=== PATIENT | female | born 1965 | race Caucasian/White ===

== ENCOUNTER 2016-12-08 18:17 | Emergency (ER) | payer OTHER ==
[2016-12-08 18:27] VITALS: BP 124/87; PULSE 72; RESP 18; TEMP 97.7; O2SAT 96
--- NOTE | 2016-12-08 19:03 | UCPHY ---
H & P Time Seen by Provider: 12/08/16 18:32 Patient Type: Established HPI/ROS: HPI Right index finger injury. 51-year-old female by private vehicle. This patient was helping her move a piece of furniture. She slipped on some ice and the furniture fell onto an outstretched right index finger. She complains of pain and swelling to the PIP joint area. She reports that she has been icing it. She is right-hand dominant. She denies any other injury. ROS: Constitutional: No fever, no chills. No weakness. Musculoskeletal: No back pain. No neck pain. As above. Skin: Laceration to right index finger. Neurological: No headache. No focal weakness or altered sensation. Past medical history: Denies any significant past medical history. Social history: Here by herself. Physical Exam: General Appearance: Alert, no distress. This patient is responding to questions appropriately and in full sentences. This patient appears well- hydrated and well-nourished. Eyes: Pupils equal and round no pallor or injection. No lid edema, erythema or injection. Right index finger examination: She has diffuse swelling with faint ecchymosis which is circumferential over the PIP joint. There is a superficial abrasion to the dorsal aspect of the PIP joint. There is a superficial skin tear to the ventral aspect of the PIP joint. The right finger is neurovascularly intact. She has pain with attempted flexion or extension of the finger from the PIP joint. Neurological: Motor sensory function is grossly intact. Cranial nerves are normal. Gait is normal. Skin: Warm and dry, no rashes. Extremities are symmetrical. All joints range without pain or impingement. Except noted. Psychiatric: No agitation. No depression. Database: EKG: Imaging: Right index finger x-ray series: Negative for fracture, subluxation, dislocation. Procedures: Procedure: Splint placement. Aluminum finger splint was applied to the right index finger. After application of the splint I returned and re-examined the patient. The splint was adequately immobilizing the joint and distal to the splint the patient's circulation and sensation was intact. Emergency department course: From triage she was sent for x-rays. After my evaluation I discussed the results of her x-rays with her. She was placed in an aluminum finger splint. Plan will be to have her follow up with her primary care physician for re- evaluation in 2-5 days once the swelling has gone down. Based on this examination she can be referred to an orthopedic hand specialist as needed. I have discussed ibuprofen dosing with her. Return to Urgent Care precautions reviewed. All of her questions were answered. She was discharged in good condition. Differential Diagnosis: The differential diagnosis on this patient includes but is not limited to ligamentous injury to right index finger, right index finger contusion. Fracture, subluxation, dislocation of the right index finger unlikely. This represents a partial list of diagnoses considered. These considerations are based on history, physical exam, past history, reassessment and diagnostic testing. Smoking Status: Never smoked Constitutional: Initial Vital Signs Temperature (C) 36.5 C 12/08/16 18:23 Heart Rate 72 12/08/16 18:23 Respiratory Rate 18 12/08/16 18:23 Blood Pressure 124/87 H 12/08/16 18:23 O2 Sat (%) 96 12/08/16 18:23 O2 Delivery Mode Room Air Allergies/Adverse Reactions: No Known Allergies Allergy (Unverified 12/08/16 18:23) MDM/Departure - Depart Disposition: Home, Routine, Self-Care Clinical Impression: Injury of right index finger Condition: Good Instructions: Crush Injury (ED) Additional Instructions: Read and follow provided instructions. Follow-up with your primary care physician in 2-5 days for re-evaluation. Orthopedic Hand Specialty referral as needed based on this follow-up examination. Ibuprofen dosin mg every 6 hours with meals for the next 3 days only. Return to the emergency department for worsening swelling, pain, loss of sensation, discoloration or other serious concerns. Referrals: ONEIL ZAVALA [Primary Care Provider] - As per Instructions - PQRS PQRS Measurement: 134: Depression screening and followup, PRIME MD-PHQ2 (12 years and older) Over the last 2 weeks, how often have you been bothered by any of the following problems? 1. Feeling down, depressed, or hopeless? 2. Little interest or pleasure in doing things? Answered no to both questions. 130: Documentation of medications. Reviewed all patient medications, doses, route and frequency. 226: Do you smoke? No. 47: 65 and older: Advanced care planning. Patient designates surrogate decision maker as spouse. 51: 18 years old and older with diagnosis of COPD, spirometry performance. NA 52: 18 years old and older with COPD and symptoms of COPD or FEV1<60% predicted prescribed a B Agonist. NA
--- NOTE | 2016-12-08 19:16 | DX ---
Right Hand, 3 Views Indication: Pain and swelling. Trauma. FINDINGS: Mild joint space narrowing is present at the PIP and DIP joints consistent with mild osteoa rthritis. There is mild radiocarpal joint space narrowing. Mild soft tissue swelling is present along the first digit without evidence of fracture or dislocation. IMPRESSION: Soft tissue swelling. No fracture.
== END 2016-12-08 19:26 | disposition home or self-care (01) ==
LOC: CED 18:17
DX: S67.190A Crushing injury of right index finger, initial encounter (principal); W00.0XXA Fall on same level due to ice and snow, initial encounter; W23.0XXA Caught, crushed, jammed, or pinched between moving objects, initial encounter
CPT/HCPCS: 73130-PO; G0463-PO

== ENCOUNTER 2017-01-23 12:51 | Emergency (ER) | payer OTHER ==
[2017-01-23 13:19] VITALS: BP 141/89; PULSE 68; RESP 14; TEMP 97.5; O2SAT 95
[2017-01-23 13:23] LABS: COLOR ORANGE; LEUKOCYTE ESTERASE,URINE 1+ (NEGATIVE); NITRITE,URINE POSITIVE (NEGATIVE); PH,URINE 5.5 (5.0-7.5)
[2017-01-23 13:31] LABS: BACTERIA 2+ /hpf (NONE SEEN); WBC,URINE 15-25 /hpf (0-3)
--- NOTE | 2017-01-23 15:12 | UCPHY ---
H & P Time Seen by Provider: 01/23/17 15:06 Patient Type: Established HPI/ROS: 51-year-old female presents complaining of urinary frequency, going small amounts, urgency, feels like a urinary tract infection. No fevers or chills, no nausea vomiting or diarrhea. She went skiing yesterday. Review of systems General no fever no chills no weakness HEENT no eye pain no eye discharge. 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 Alcohol socially, no drug use Smoking Status: Never smoked Physical Exam: 51-year-old female alert and oriented Female alert and oriented in no acute distress nontoxic appearance, afebrile Atraumatic normocephalic Neck supple Lungs clear to auscultation bilaterally Heart regular rate and rhythm Abdomen normoactive bowel sounds soft mild suprapubic tenderness no guarding no rebound Back no CVA tenderness Extremities no cyanosis clubbing or edema Skin no rash Constitutional: Initial Vital Signs Temperature (C) 36.4 C 01/23/17 13:11 Heart Rate 68 01/23/17 13:11 Respiratory Rate 14 01/23/17 13:11 Blood Pressure 141/89 H 01/23/17 13:11 O2 Sat (%) 95 01/23/17 13:11 O2 Delivery Mode Room Air Allergies/Adverse Reactions: No Known Allergies Allergy (Unverified 12/08/16 18:23) Home Medications: Medication Instructions Recorded Azo 01/23/17 Cephalexin 500 mg PO TID #21 tablet 01/23/17 Medical Decision Making ED Course/Re-evaluation: Patient seen and evaluated for dysuria UA positive for leuk Estrace nitrate bacteria Impression UTI Plan Cephalexin Phenazopyridine Follow-up PCP - Data Points Laboratory Results: 01/23/17 13:10 Urine Color ORANGE Urine Appearance CLEAR Urine pH 5.5 (5.0-7.5) Ur Specific [place] 1.010 (1.002-1.030) Urine Protein NEGATIVE (NEGATIVE) Urine Ketones NEGATIVE (NEGATIVE) Urine Blood TRACE H (NEGATIVE) Urine Nitrate POSITIVE H (NEGATIVE) Urine Bilirubin NEGATIVE (NEGATIVE) Urine Urobilinogen 1.0 EU EU (0.2-1.0) Ur Leukocyte Esterase 1+ H (NEGATIVE) Urine RBC 3-5 /hpf H /hpf (0-3) Urine WBC 15-25 /hpf H /hpf (0-3) Ur Epithelial Cells TRACE /lpf /lpf (NONE-1+) Urine Bacteria 2+ /hpf H /hpf (NONE SEEN) Ur Culture Indicated? INDICATED H (NI) Urine Glucose NEGATIVE (NEGATIVE) Departure - Departure Disposition: Home, Routine, Self-Care Clinical Impression: Urinary tract infection Condition: Good Instructions: Urinary Tract Infection in Women (ED) Referrals: ONEIL ZAVALA [Primary Care Provider] - As per Instructions Prescriptions: Cephalexin 500 mg PO TID #21 tablet - PQRS PQRS Measurement: na
== END 2017-01-23 15:19 | disposition home or self-care (01) ==
LOC: CED 12:51
DX: N39.0 Urinary tract infection, site not specified (principal); B95.4 Other streptococcus as the cause of diseases classified elsewhere
CPT/HCPCS: 81003-PO; 81015-PO; G0463-PO